=== PATIENT | female | born 2000 | race Caucasian/White ===

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

== ENCOUNTER 2019-03-05 23:07 | Emergency (ER) | payer MEDICAID, OTHER ==
[~2019-03-05] VITALS: Ht 160 cm; Wt 105.0 kg
[~2019-03-05 23:07] MED LIST changes: -AZIT250T94 PO; +CIPR-193 PO; +GUAI5SYR2 PO; -IBUP400T22 PO; +METR500T PO; -UDROBDM PO
[2019-03-05 23:10] VITALS: BP 121/82; PULSE 85; RESP 18; Ht 160 cm; Wt 105.0 kg
[2019-03-06] MEDS ORDERED: IBUP-1561 PO (01:14)
--- NOTE | 2019-03-06 02:26 | ERD ---
ER Documentation Chief Complaint Chief Complaint chest/back pain since yesterday. states been exercising a lot HPI 18-year-old female with past medical history of anxiety who presents with complaint of chest pain. Describes intermittent left-sided chest discomfort with radiation to the mid back that began 20 minutes after eating a hamburger yesterday.. She otherwise denies family history of early cardiac disease, personal history of cardiopulmonary disease, nausea, vomiting, cough, shortness of breath, dyspnea. Suffers from anxiety but has never been hospitalized for such. Has recently been distressed over the loss of a young friend in this ED several days ago. Also reports starting rigorous exercise regimen with weights and cardio. At time of evaluation patient is nontoxic-appearing, calm with stable normal triage vital signs. ROS All systems reviewed and are negative except as per history of present illness. Medications Home Meds Active Scripts Ibuprofen* (Motrin*) 400 Mg Tab, 400 MG PO Q6, #30 TAB Prov:STELLA PENNINGTON PA-C 03/06/19 Metronidazole* (Flagyl*) 500 Mg Tablet, 500 MG PO Q8 for 8 Days, TAB Prov:MILVIA GONSALES MD 04/28/18 Ciprofloxacin Hcl* (Ciprofloxacin Hcl*) 250 Mg Tablet, 250 MG PO BID for 8 Days, #16 TAB Prov:MILVIA GONSALES MD 04/28/18 Guaifenesin-Dextromethorphan* (Robitussin* DM) 100MG/10MG/5ML Syrup, 5 ML PO Q4H PRN for COUGH for 5 Days, ML Prov:TU MIX MD 07/09/17 Ibuprofen* (Motrin*) 600 Mg Tab, 600 MG PO Q6, #15 TAB Prov:TU MIX MD 07/09/17 Dextromethorphan Hb-Promethazine Hcl (Promethazine DM Syrup) 473 Ml Syrup, 5 ML PO Q6H PRN for COUGH, #4 OZ Prov:TU MIX MD 05/28/17 Loperamide Hcl* (Imodium*) 2 Mg Capsule, 2 MG PO .WITH EACH DIARRHEA PRN for DIARRHEA for 3 Days, CAP MAX 16 mg/day Prov:GAGAN HOOVER 04/19/17 Mag Hydrox/Al Hydrox/Simeth (Maalox Ms Liquid) 360 Ml Oral.susp, 2 TSP PO TID, #24 OZ Prov:KEZIA ESPINAL MD 12/01/15 Ondansetron Hcl* (Zofran*) 4 Mg Tablet, 4 MG PO Q6H for NAUSEA AND/OR VOMITING, #12 TAB Prov:KEZIA ESPINAL MD 12/01/15 Allergies Allergies: Coded Allergies: No Known Allergy (Unverified , 08/13/17) PMhx/Soc Medical and Surgical Hx: pt denies Medical Hx, pt denies Surgical Hx History of Surgery: No Anesthesia Reaction: No Hx Neurological Disorder: No Hx Respiratory Disorders: No Hx Cardiac Disorders: No Hx Psychiatric Problems: No Hx Miscellaneous Medical Probl: No Hx Alcohol Use: No Hx Substance Use: No Hx Tobacco Use: No Smoking Status: Never smoker FmHx Family History: No diabetes, No coronary disease, No other Physical Exam Vitals Vital Signs Date Temp Pulse Resp B/P (MAP) Pulse Ox O2 O2 Flow FiO2 Time Delivery Rate 03/05/19 98.6 85 18 121/82 98 23:10 (95) Physical Exam I have reviewed the triage vital signs. Const: Well nourished, well developed, appears stated age Eyes: PERRL, no conjunctival injection HENT: NCAT, Neck supple without meningismus CV: RRR, Warm, well-perfused extremities RESP: CTAB, Unlabored respiratory effort GI: soft, non-tender, non-distended, no masses MSK: No gross deformities appreciated Skin: Warm, dry. No rashes Neuro: grossly non focal Psych: Appropriate mood and affect. Procedures/MDM 18-year-old healthy female who presents with complaint of chest pain. Patient otherwise healthy, p/w atypical chest pain ML of nonemergent etiology. No overt risk factors for ACS ECG without overt e/o STEMI, Brugadas sign, delta wave, epsilon wave, significantly prolonged QTc, or malignant arrhythmia. Low Wells score with low risk for PE and no significant hypoxia. Given chronicity and pain characteristics, low s/f dissection. Exam and history not consistent with significant PTX or PNA. Pain controlled, well appearing. Cautious return precautions discussed with full understanding. Prompt follow up with primary care physician discussed. DISPOSITION PLAN: We discussed follow up with the patient's primary care doctor within 24 to 48 hours. Patient counseled regarding my diagnostic impression and care plan. Prior to discharge all questions answered. Pt agrees with treatment plan and understands strict return precautions. Precautionary instructions provided including instructions to return to the ER if not improving or for any worsening or changing symptoms or concerns. Disclaimer: Inadvertent spelling and grammatical errors are likely due to EHR/dictation software use and do not reflect on the overall quality of patient care. Also, please note that the electronic time recorded on this note does not necessarily reflect the actual time of the patient encounter. Departure Diagnosis: Primary Impression: Chest pain Condition: Stable Patient Instructions: Chest Pain, Noncardiac (Child) Additional Instructions: Call your primary care doctor TOMORROW for an appointment during the next 2-3 days.See the doctor sooner or return here if your condition worsens before your appointment time. STELLA PENNINGTON PA-C Mar 06, 2019 02:26
== END 2019-03-06 01:45 | disposition home or self-care (01) ==
LOC: FTE 23:07
DX: R07.89 Other chest pain (principal)
CPT/HCPCS: 93005; Z7502

== ENCOUNTER 2019-04-23 20:31 | Emergency (ER) | payer MEDICAID ==
[~2019-04-23] VITALS: Ht 160 cm; Wt 106.4 kg
[~2019-04-23 20:31] MED LIST changes: +IBUP-1561 PO
[2019-04-23 20:50] VITALS: Ht 160 cm; Wt 106.4 kg
[2019-04-23] MEDS ORDERED: NITR-58 PO (21:45)
--- NOTE | 2019-04-23 21:47 | ERD ---
ER Documentation Chief Complaint Chief Complaint LLQ ab & L flank pains x 1 day HPI 18-year-old female otherwise healthy presents with left lower quadrant abdominal pain. No fever. No nausea vomiting or diarrhea. No dysuria or hematuria but she does have increased urinary frequency. ROS All systems reviewed and are negative except as per history of present illness. Medications Home Meds Active Scripts Nitrofurantoin Monohyd Macrocr* (Macrobid*) 100 Mg Capsr, 100 MG PO BID, #14 CAP Prov:LORIE WESLEY PA-C 04/23/19 Ibuprofen* (Motrin*) 400 Mg Tab, 400 MG PO Q6, #30 TAB Prov:STELLA PENNINGTON PA-C 03/06/19 Metronidazole* (Flagyl*) 500 Mg Tablet, 500 MG PO Q8 for 8 Days, TAB Prov:MILVIA GONSALES MD 04/28/18 Ciprofloxacin Hcl* (Ciprofloxacin Hcl*) 250 Mg Tablet, 250 MG PO BID for 8 Days, #16 TAB Prov:MILVIA GONSALES MD 04/28/18 Guaifenesin-Dextromethorphan* (Robitussin* DM) 100MG/10MG/5ML Syrup, 5 ML PO Q4H PRN for COUGH for 5 Days, ML Prov:TU MIX MD 07/09/17 Ibuprofen* (Motrin*) 600 Mg Tab, 600 MG PO Q6, #15 TAB Prov:TU MIX MD 07/09/17 Dextromethorphan Hb-Promethazine Hcl (Promethazine DM Syrup) 473 Ml Syrup, 5 ML PO Q6H PRN for COUGH, #4 OZ Prov:TU MIX MD 05/28/17 Loperamide Hcl* (Imodium*) 2 Mg Capsule, 2 MG PO .WITH EACH DIARRHEA PRN for DIARRHEA for 3 Days, CAP MAX 16 mg/day Prov:GAGAN HOOVER 04/19/17 Mag Hydrox/Al Hydrox/Simeth (Maalox Ms Liquid) 360 Ml Oral.susp, 2 TSP PO TID, #24 OZ Prov:KEZIA ESPINAL MD 12/01/15 Ondansetron Hcl* (Zofran*) 4 Mg Tablet, 4 MG PO Q6H for NAUSEA AND/OR VOMITING, #12 TAB Prov:KEZIA ESPINAL MD 12/01/15 Allergies Allergies: Coded Allergies: No Known Allergy (Unverified , 08/13/17) PMhx/Soc Medical and Surgical Hx: pt denies Medical Hx, pt denies Surgical Hx History of Surgery: No Anesthesia Reaction: No Hx Neurological Disorder: No Hx Respiratory Disorders: No Hx Cardiac Disorders: No Hx Psychiatric Problems: No Hx Miscellaneous Medical Probl: No Hx Alcohol Use: No Hx Substance Use: No Hx Tobacco Use: No Smoking Status: Never smoker FmHx Family History: No diabetes Physical Exam Vitals Vital Signs Date Temp Pulse Resp B/P (MAP) Pulse Ox O2 O2 Flow FiO2 Time Delivery Rate 04/23/19 99.8 74 18 134/70 99 20:50 (91) Physical Exam INITIAL VITAL SIGNS: Reviewed by me GENERAL: Awake, alert and oriented x 4, well appearing, nontoxic, speaking in full sentences. No acute distress HEAD: Atraumatic NECK: Supple. No masses. Full range of motion. No meningismus. No midline tenderness. RESPIRATORY: Clear to auscultation bilaterally. Symmetric chest wall rise. No wheezing or rales. No accessory muscle use. CV: Regular rate and rhythm. No murmurs, rubs, or gallops. ABDOMEN: Soft, non-distended. Nontender. Negative [place]. Negative McBurneys point tenderness. No CVA tenderness bilaterally. No guarding. No rebound. Results 24 hrs Laboratory Tests Test 04/23/19 21:33 04/23/19 21:34 Bedside Urine pH (LAB) 5.5 Bedside Urine Protein (LAB) Negative Bedside Urine Glucose (UA) Negative Bedside Urine Ketones (LAB) Negative Bedside Urine Blood Negative Bedside Urine Nitrite (LAB) Negative Bedside Urine Leukocyte Esterase (L 1+ POC Beta HCG, Qualitative NEGATIVE Procedures/MDM The differential diagnosis includes but is not limited to appendicitis, cholelithiasis, cholecystitis, pancreatitis, hepatitis, gastritis, peptic ulcer disease, bowel obstruction, diverticulitis, renal disease including stones, torsion, AAA, pyelonephritis, and others. Abdominal exam is benign. She has no tenderness throughout. I doubt diverticulitis appendicitis, or any other emergent cause of her symptoms. She does have UTI and urine dip will be treated with Macrobid. Patient counseled regarding my diagnostic impression and care plan. Prior to discharge all questions answered. Pt agrees with treatment plan and understands strict return precautions. Pt is instructed to follow up with primary care provider within 24-48 hours. Precautionary instructions provided including instructions to return to the ER if not improving or for any worsening or changing symptoms or concerns. Departure Diagnosis: Primary Impression: Urinary tract infection Condition: Stable Patient Instructions: Understanding Urinary Tract Infections (UTIs) Additional Instructions: Call your primary care doctor TOMORROW for an appointment during the next 1-2 days.See the doctor sooner or return here if your condition worsens before your appointment time. LORIE WESLEY PA-C Apr 23, 2019 21:47
[2019-04-23 22:37] VITALS: BP 128/70; PULSE 74; RESP 17
== END 2019-04-23 22:37 | disposition home or self-care (01) ==
LOC: FTE 20:31
DX: N39.0 Urinary tract infection, site not specified (principal)
CPT/HCPCS: 81003; 81025; Z7502; 99283